=== PATIENT | male | born 1960 | race Caucasian/White ===

== ENCOUNTER 2017-08-18 10:58 | Emergency (ER) | payer BC ==
--- NOTE | 2017-08-18 11:14 | ED.PDOC ---
History of Present Illness - General Chief Complaint: Problem Stated Complaint: flank pain right Time Seen by Provider: 08/18/17 11:13 Source: patient Exam Limitations: no limitations - History of Present Illness Initial Comments: ariadne Gonzalez 57 y/o male with history of nephrolithiasis in the past stated that he had dull right flank pain about 3 hours ago and had got worse.Had sme symptoms Monady of last week and went to [facility] er but got better thinking it might have come out andhas pending appointment with Urologist waiting to be called by their office.No nausea/vomiting ,no dysuria,no hematuria ,no diaphoresisi ,no fever Timing/Duration: this morning Quality: moderate, dull Onset Location: right flank Radiation: RLQ Activites at Onset: none Prior abdominal problems: similar symptoms Sexual intercourse history: less than 2 months ago, single partner Improving Factors: nothing Worsening Factors: nothing Associated Symptoms: other - see hpi Allergies/Adverse Reactions: Allergies NO KNOWN ALLERGY Allergy (Verified 08/18/17 11:05) Home Medications: Ambulatory Orders Acetamin W/Cod #3 Tab [Tylenol w/CODEINE #3] 1 ea PO Q4HR PRN #20 tab 08/18/17 Ketorolac Tromethamine [Toradol Tabs] 10 mg PO TID #10 tab 08/18/17 Tamsulosin HCl [Flomax] 0.4 mg PO DAILY #10 cap 08/18/17 Review of Systems - Review of Systems Constitutional: States: no symptoms reported EENTM: States: no symptoms reported Respiratory: States: no symptoms reported Cardiology: States: no symptoms reported Gastrointestinal/Abdominal: States: no symptoms reported Genitourinary: States: see HPI All other Systems: Reviewed and Negative, No Change from Baseline Past Medical History (General) - Patient Medical History Hx Stroke: No Hx Cardiac Disorders: No Hx Congestive Heart Failure: No Hx Diabetes: No Hx Renal Disease: Yes - nephrolithiasis Surgical History: other - colon resection-diverticulitis;back surgery Family Medical History - Family History Father Family History: No Known Living Status: Still Living Hx Family;Other: Kidney stone-sister;and daughter Physical Exam - Physical Exam General Appearance: Alert, Comfortable, No apparent distress Eyes, Ears, Nose, Throat Exam: normal ENT inspection Neck: supple, normal inspection Cardiovascular/Respiratory: regular rate, rhythm, no M/R/G, normal peripheral pulses, normal breath sounds Gastrointestinal/Abdominal: normal bowel sounds, non tender, soft, no organomegaly, no pulsatile mass Back Exam: normal inspection, no vertebral tenderness, CVA tenderness (R) Extremity: non-tender, normal inspection, no pedal edema, no calf tenderness Neurologic: alert, oriented x 3 Skin Exam: normal color, warm/dry Progress - Progress Progress: 08/18/17 12:00 08/18/17 11:15 IV Care:Saline Lock per Protoc QSHIFT Lactated Ringers [Lr] 1,000 ml IVS ONCE URINALYSIS Stat Laboratory Results - last 24 hr 08/18/17 11:27 WBC 5.9 RBC 4.68 L Hgb 14.8 Hct 43.3 MCV 92.4 MCH 31.6 H MCHC 34.2 RDW 12.9 Plt Count 234 MPV 8.2 Absolute Neuts (auto) 3.80 Absolute Lymphs (auto) 1.40 Absolute Monos (auto) 0.50 Absolute Eos (auto) 0.10 Absolute Basos (auto) 0.10 Neutrophils % 64.6 Lymphocytes % 24.1 Monocytes % 8.3 Eosinophils % 2.1 Basophils % 0.9 PT 12.1 INR 1.040 PTT (SP) 31.0 Sodium 136 Potassium 3.9 Chloride 101 Carbon Dioxide 26 Anion Gap 12.9 BUN 24 H Creatinine 1.38 H BUN/Creatinine Ratio 17.4 Random Glucose 101 Serum Osmolality 276.1 Calcium 8.8 Magnesium 2.0 Total Bilirubin 1.3 H Direct Bilirubin 0.2 Indirect Bilirubin 1.1 H AST 30 ALT 23 Alkaline Phosphatase 45 Creatine Kinase 332 H* CK-MB (CK-2) 4.4 CK-MB (CK-2) % 1.33 Troponin I < 0.02 Serum Total Protein 7.3 Albumin 4.2 - Results/Orders Results/Orders: Vital Signs - 8 hr 08/18/17 11:00 Temperature 98.1 F Pulse Rate [ 92 H Left Radial] Respiratory 20 Rate Blood Pressure 147/105 [Left Arm] O2 Sat by Pulse 94 L Oximetry - EKG/XRAY/CT CT Ordered: Yes - abd/p-right 4 mm uvj calculus;with non obstructing bliateral nephrolith Departure - Departure Clinical Impression: Ureteropelvic junction calculus, Bilateral nephrolithiasis Time of Disposition: 13:16 Disposition: Discharge to Home or Self Care Condition: Fair Departure Forms: ED Discharge - Pt. Copy, Patient Portal Self Enrollment Instructions: DI for Kidney Stones Prescriptions: Acetamin W/Cod #3 Tab [Tylenol w/CODEINE #3] 1 ea PO Q4HR PRN #20 tab PRN Reason: Pain Ketorolac Tromethamine [Toradol Tabs] 10 mg PO TID #10 tab Tamsulosin HCl [Flomax] 0.4 mg PO DAILY #10 cap Home Medications: Ambulatory Orders Acetamin W/Cod #3 Tab [Tylenol w/CODEINE #3] 1 ea PO Q4HR PRN #20 tab 08/18/17 Ketorolac Tromethamine [Toradol Tabs] 10 mg PO TID #10 tab 08/18/17 Tamsulosin HCl [Flomax] 0.4 mg PO DAILY #10 cap 08/18/17 Additional Instructions: NEED TO CALL YOUR UROLOGIST in [facility] 21 Aug 2017 for appointment Return to ED as needed
[2017-08-18] MEDS ORDERED: LACTATED RINGERS 1,000 ML IVS ONE (11:15)
[2017-08-18] MEDS ORDERED: KETOROLAC TROMETHAMINE INJ 30 MG/ML VIAL IV ONE (11:15)
[2017-08-18] MEDS ORDERED: MORPHINE SULFATE INJ 10 MG/ML VIAL IV ONE (11:15)
[2017-08-18] MEDS ORDERED: TAMSULOSIN 0.4 MG CAP PO ONE (11:15)
[2017-08-18] MEDS ORDERED: SODIUM CHLORIDE 0.9% 1000ML 1,000 ML IVS ONE (12:37)
--- NOTE | 2017-08-18 12:59 | CT ---
PROCEDURE: Abdoment/Pelvis w/o Contrast HISTORY: flank pain /kidney stone Indication: Same as above Comparison: None Technique: CT of the abdomen and pelvis was done without intravenous contrast. Images were obtained from the lung base to the level of the pubic symphysis in axial plane, followed by orthogonal sagittal and coronal reconstruction. Oral contrast was not given for the study. This exam was performed according to our departmental dose-optimization program, which includes automated exposure control, adjustment of the mA and/or KV according to the patient's size and/or use of iterative reconstruction technique. FINDINGS: Images through the lung bases do not show any focal infiltrates or pleural effusions. The liver, gallbladder, pancreas, spleen and the bilateral adrenal glands appear unremarkable, given the limitation of lack of intravenous contrast. There is presence of multiple subcentimeter nonobstructive bilateral renal calculi. There is no left-sided hydroureteronephrosis. There is right-sided hydroureteronephrosis to the level of 4 mm calculus seen in the distal right pelvic ureter, approximately 4 mm from the right ureterovesical junction. The urinary bladder is decompressed. There is mild prostate enlargement The small bowel appears unremarkable, without any evidence of small bowel obstruction or bowel wall thickening. There is no CT evidence of acute appendicitis, pericecal inflammatory change or ileocecal mesenteric adenitis. The ileocecal junction appears unremarkable. There is no CT evidence of acute colonic diverticulitis or colitis or large bowel obstruction. There is large bowel diverticulosis. There is prior surgery in the distal sigmoid colon/rectum junction There is no pathological lymphadenopathy in the retroperitoneum or in the pelvic region. There is no evidence of free fluid or free air in the abdomen or the pelvic region. There is no clinically significant abdominal aortic aneurysm. There is a small fat-containing periumbilical ventral hernia defect The visualized lumbar spine shows degenerative change, most pronounced at L5/S1 level. The paravertebral soft tissues are unremarkable. The remainder of the pelvic structures are unremarkable. IMPRESSION: There is presence of multiple subcentimeter nonobstructive bilateral renal calculi. There is no left-sided hydroureteronephrosis. There is right-sided hydroureteronephrosis to the level of 4 mm calculus seen in the distal right pelvic ureter, approximately 4 mm from the right ureterovesical junction. There is mild prostate enlargement Electronically signed by: Chet Porras MD 08/18/2017 12:57 PM CDT Workstation: [id number]
[2017-08-18 13:46] VITALS: BP 136/87; TEMP 97.4; O2SAT 94
== END 2017-08-18 13:41 | disposition home or self-care (01) ==
LOC: ER 10:58
DX: N20.2 Calculus of kidney with calculus of ureter (principal); Z87.442 Personal history of urinary calculi
CPT/HCPCS: 36415; 74176; 80048; 80076; 81001; 82550; 82553; 84484; 85025; 85610; 85730; J1885; J2270; J7030; J7120